=== PATIENT | male | born 1975 | race Caucasian/White ===

== ENCOUNTER 2022-03-26 08:10 | Emergency (ER) | payer BC ==
[2022-03-26 08:15] VITALS: RESP 18
[2022-03-26] MEDS ORDERED: KETOROLAC 15 MG/ML 1 ML VIAL IM STA (08:26)
[2022-03-26] MEDS ORDERED: ORPHENADRINE 30 MG/ML 2 ML VIAL IM STA (08:26)
--- NOTE | 2022-03-26 08:31 | ED ---
Back Pain HPI - General Chief Complaint: Back Pain/Injury Stated Complaint: Back Pain Time Seen by Provider: 03/26/22 08:17 Source: patient, RN notes reviewed, old records reviewed Limitations: no limitations - History of Present Illness Initial Comments: This is a nontoxic-appearing 46-year-old male that presents to the emergency room ambulatory with complaints of left lower back pain. Patient states that it initially started on Thanksgiving when he slipped carrying a box but did not fall. He stated at that time he felt a pull in the muscle and it has been tight intermittently since. Symptoms have come and gone however yesterday he was lifting his 50 pound son into the car and felt another twisting and pulling, exacerbating the pain. Today when he went to put his boots on he felt like his back locked up. Patient denies any fevers. Denies any dysuria or hematuria. No abdominal pain. No trauma. No previous medical history. Is a nonsmoker. MD Complaint: back pain -: month(s) (1) Similar Symptoms Previously: Yes Radiation: none Severity scale (1-10): 10 Quality: sharp Consistency: intermittent Improves With: immobilization Worsens With: movement Context: while lifting, turning/twisting, bending Treatments Prior to Arrival: NSAIDS - Related Data Previous Rx's Medication Instructions Recorded Cyclobenzaprine [Flexeril] 10 mg PO TID PRN #15 tab 03/26/22 Ibuprofen [Motrin] 600 mg PO Q8HR PRN #30 tab 03/26/22 Lidocaine 5% Patch [Lidoderm] 1 patch TOPICAL DAILY 14 Days #14 03/26/22 patch Allergies Allergy/AdvReac Type Severity Reaction Status Date / Time No Known Allergies Allergy Verified 03/26/22 08:12 Review of Systems ROS Statement: Those systems with pertinent positive or pertinent negative responses have been documented in the HPI. ROS Other: All systems not noted in ROS Statement are negative. Past Medical History Past Medical History: No Reported History History of Any Multi-Drug Resistant Organisms: None Reported Past Surgical History: No Surgical Hx Reported Past Psychological History: No Psychological Hx Reported Smoking Status: Never smoker Past Alcohol Use History: Occasional Past Drug Use History: None Reported General Exam Limitations: no limitations General appearance: alert, in no apparent distress Head exam: Present: atraumatic Eye exam: Present: normal appearance. Absent: scleral icterus, conjunctival injection, periorbital swelling Respiratory exam: Present: normal lung sounds bilaterally. Absent: respiratory distress, wheezes, rales, rhonchi, stridor, chest wall tenderness, accessory muscle use Cardiovascular Exam: Present: tachycardia GI/Abdominal exam: Present: soft. Absent: distended, tenderness, rigid Extremities exam: Present: full ROM, normal capillary refill. Absent: tenderness, pedal edema, calf tenderness Back exam: Present: normal inspection, tenderness (left lumbar), muscle spasm (left lumbar), paraspinal tenderness. Absent: CVA tenderness (R), CVA tenderness (L), vertebral tenderness, rash noted Expanded Back exam: Absent: saddle anesthesia Back exam: Negative Straight Leg Raising: Left, Right Neurological exam: Present: alert, oriented X3 Psychiatric exam: Present: normal affect, normal mood Skin exam: Present: warm, dry, normal color. Absent: cyanosis, diaphoretic, petechiae, pallor Course Vital Signs 03/26/22 03/26/22 08:12 09:44 Temperature 98.7 F 98 F Pulse Rate 111 H 77 Respiratory 18 18 Rate Blood Pressure 158/97 138/72 O2 Sat by Pulse 97 98 Oximetry Medical Decision Making - Medical Decision Making Patient was given Toradol, Norflex and a Lidoderm patch for his left lumbar musculoskeletal strain and muscle spasms with minimal pain relief. He was given a shot of morphine and I explained that this pain may last several weeks. Patient did not have a traumatic injury, denies any fevers. No bowel or bladder incontinence. No dysuria or hematuria. Is able to ambulate with a steady gait. No other medical history. No history of cancers. No rashes. No red flag symptoms for back pain. He was discharged home with Flexeril and Lidoderm patches. Directed to continue Tylenol and Motrin as needed for pain along with heat. He states he is not primary care doctor and I did encourage him to obtain a primary care doctor. Patient was discharged home with his ambulatory. Directed to return to the emergency room with any new or concerning symptoms. Patient is agreeable to this plan of care. Case discussed with Dr. Bellamy Was pt. sent in by a medical professional or institution? @ No Did you speak to anyone other than the patient for history? @ No Did you review nursing and triage notes? @ Agrees Were old charts reviewed? @ yes Differential Diagnosis? @ MDM Differential Back Pain: Strain, zoster, cauda equina syndrome, epidural abscess, vertebral osteomyelitis, discitis, fracture, subluxation, disc herniation, DJD, spinal stenosis, dissection, AAA, pancreatitis, peptic ulcer disease, pyelonephritis, kidney stone this is not meant to be an all-inclusive list. EKG interpreted by me (3pts min.)? @ Not applicable X-rays interpreted by me (1pt min.)? @ Not applicable CT interpreted by me (1pt min.)? @ Not applicable U/S interpreted by me (1pt. min.)? @ Not applicable What testing was considered but not performed? (CT, X-rays, U/S, labs)? Why? @ Did consider x-ray however patient states this was not a traumatic injury. This is described more as a musculoskeletal strain which is paraspinal lumbar. What meds were considered but not given? Why? @ I did consider steroid however there is no radiculopathy Did you discuss the management of the patient with other professionals? @ No Did you reconcile home meds? @ No Was smoking cessation discussed for >3mins.? @ Not applicable Was critical care preformed (if so, how long)? @ No Were there social determinants of health that impacted care today? How? (Homelessness, low income, unemployed, alcoholism, drug addiction, transportation, low edu. Level, literacy, decrease access to med. care, assisted, rehab)? @ Patient does not have a primary care doctor, he was directed to obtain a family care doctor as it is important for ease of access into the medical system. Was there de-escalation of care discussed even if they declined? (Discuss DNR or withdrawal of care, Hospice)? @ No What co-morbidities impacted this encounter? (DM, HTN, Smoking, COPD, CAD, Cancer, CVA, Hep., AIDS, mental health diagnosis, sleep apnea, morbid obesity)? @ No Was patient admitted / discharged? @ Discharged Undiagnosed new problem with uncertain prognosis? @ [none] Drug Therapy requiring intensive monitoring for toxicity (Heparin, Nitro, Insulin, Cardizem)? @ No Were any procedures done? @ No Diagnosis/symptom? @ Musculoskeletal back pain Acute, or Chronic, or Acute on Chronic? @ Acute Uncomplicated (without systemic symptoms) or Complicated (systemic symptoms)? @ Uncomplicated Side effects of treatment? @ [none] Exacerbation, Progression, or Severe Exacerbation] @ [no] Poses a threat to life or bodily function? @ [no] Disposition Clinical Impression: Musculoskeletal back pain Disposition: HOME SELF-CARE Condition: Good Instructions (If sedation given, give patient instructions): Acute Low Back Pain (ED) Additional Instructions: Take Flexeril as prescribed as a muscle relaxer, Motrin for inflammation and pain every 6-8 hours, and use Lidoderm patches to the site of pain, one patch leave on for 12 hours and then remove for 12 hours. You can also use heat to the site for pain relief. Follow-up with your primary care doctor next week. Return to the emergency room with any new or concerning symptoms. Prescriptions: Cyclobenzaprine [Flexeril] 10 mg PO TID PRN #15 tab PRN Reason: Muscle Spasm Lidocaine 5% Patch [Lidoderm] 1 patch TOPICAL DAILY 14 Days #14 patch Ibuprofen [Motrin] 600 mg PO Q8HR PRN #30 tab PRN Reason: Pain Is patient prescribed a controlled substance at d/c from ED?: No Referrals: None,Stated [Primary Care Provider] - 1-2 days Time of Disposition: 09:14
[2022-03-26] MEDS ORDERED: LIDOCAINE 5% PATCH TOPICAL SCH (09:00)
[2022-03-26] MEDS ORDERED: MORPHINE SULFATE 4 MG/ML SYRINGE IM STA (09:10)
[2022-03-26 09:44] VITALS: BP 138/72; PULSE 77; TEMP 98
== END 2022-03-26 09:44 | disposition home or self-care (01) ==
LOC: EC 08:10
DX: M79.18 Myalgia, other site (principal)
CPT/HCPCS: 99283; 96372 ×3; J2270; J2360; J1885